=== PATIENT | male | born 2000 | race Caucasian/White ===

== ENCOUNTER 2020-12-10 00:36 | Emergency (ER) | payer BC ==
[2020-12-10] MEDS ORDERED: SODIUM CHLORIDE 1,000 ML IV STA ×2 (00:58→01:56)
[2020-12-10] MEDS ORDERED: ACETAMINOPHEN 1000 MG/100 ML VIAL (NON FORMULARY) IVPB ONE (01:05)
[2020-12-10 01:30] VITALS: TEMP 99.2; BMI 20.7
[2020-12-10] MEDS ORDERED: ACETAMINOPHEN INJECTION 100 ML IVPB ONE (01:31)
[2020-12-10 02:16] LABS: BASO % 0.2 % (0-2.0); EOS % 3.6 % (0-4.5); HEMATOCRIT 46.1 % (35.4-49); HEMOGLOBIN 15.7 GM/dL (11.7-16.9); LYMPH % 8.9 % (8-40); MCH 29.9 pg (25.7-33.7); MEAN PLT VOLUME 10.9 fl (7.5-11.1); MONO % 6.3 % (3.8-10.2); PLATELET COUNT 156 K/MM3 (134-434); RBC 5.24 M/mm3 (4.00-5.60); RDW 13.9 % (11.9-15.9); WHITE BLOOD COUNT 8.6 K/mm3 (4.0-10.0)
[2020-12-10 02:25] VITALS: BP 113/50; PULSE 76
[2020-12-10 02:47] LABS: ALBUMIN 3.8 g/dl (3.4-5.0); BLOOD UREA NITROGEN 10.9 mg/dL (7-18)
[2020-12-10 02:50] LABS: CREATININE 0.9 mg/dL (0.55-1.3)
[2020-12-10 02:51] LABS: BILIRUBIN,TOTAL 0.7 mg/dL (0.2-1)
== END 2020-12-10 03:00 | disposition home or self-care (01) ==
LOC: FER 00:36
PROC: 3E033NZ Introduction of Analgesics, Hypnotics, Sedatives into Peripheral Vein, Percutaneous Approach (ICD-10-PCS; principal; 2020-12-10)
PROC: 3E0337Z Introduction of Electrolytic and Water Balance Substance into Peripheral Vein, Percutaneous Approach (ICD-10-PCS; 2020-12-10)
DX: A09 Infectious gastroenteritis and colitis, unspecified (principal)
CPT/HCPCS: 36415; 80053; 85025; 99284-25; J0131